=== PATIENT | female | born 1970 | race Hispanic/Latino ===

== ENCOUNTER 2018-05-25 06:59 | Outpatient (CLI) | payer BC ==
--- NOTE | 2018-05-25 09:01 | ULT ---
ULTRASOUND ABDOMEN: HISTORY: Abdominal pain. FINDINGS: The liver demonstrates homogeneous echotexture without focal mass or intrahepatic ductal dilatation. The spleen measures 9.3 cm in length without mass. There are nonshadowing echogenic foci arising fr om the gallbladder without mobility, consistent with polyps. The largest of these measures 9 mm. No shadowing gallstones, gallbladder wall thickening, or pericholecystic fluid is seen. The common artemio t measures 6 mm in diameter. The pancreas, abdominal aorta, and IVC are not well visualized. No hyd ronephrosis is seen on either side. There is are 3 cm cyst arising from the right kidney. No free f luid is seen in the abdomen. IMPRESSION: 1. Gallbladder polyps (the largest measuring 9 mm) Surgical consultation is recommended. 2. Right renal cyst. POS: [facility]
== END 2018-05-25 07:00 | disposition home or self-care (01) ==
LOC: BICULT 06:59
PROVIDERS: ATTEND Nurse Practitioner Family
DX: R10.13 Epigastric pain (principal); N30.00 Acute cystitis without hematuria; K59.00 Constipation, unspecified; K21.9 Gastro-esophageal reflux disease without esophagitis; K82.4 Cholesterolosis of gallbladder; N28.1 Cyst of kidney, acquired
CPT/HCPCS: 76700

== ENCOUNTER 2018-06-17 10:36 | Outpatient (CLI) | payer BC ==
[2018-06-17 15:01] LABS: #Lymphocytes 2.2 thou/uL (1.20-3.40); #Monocytes 0.5 thou/uL (0.11-0.59); #Neutrophils 3.7 thou/uL (1.40-6.50); %Basophils 0.2 % (0.0-1.0); %Eosinophils 0.6 % (0.0-10.0); %Monocytes 7.3 % (0.0-10.0); %Neutrophils 57.8 % (42.0-75.0); Hemoglobin 13.9 g/dL (12.0-16.0); Mean Corpuscular Hemoglobin 30.7 pg (27.0-31.0); Mean Corpuscular Volume 87.6 fL (78.0-98.0); Mean Platelet Volume 7.4 fL (7.4-10.4); Platelet Count 334 thou/uL (130-400); RBC Distribution Width 11.7 % (11.5-14.5); Red Blood Cell (RBC) Count 4.52 mill/uL (4.20-5.40); White Blood Cell (WBC) Count 6.5 thou/uL (4.8-10.8)
[2018-06-17 15:32] LABS: BHCG - Serum Negative (NEGATIVE); Pregs Control Background? CLEAR/WHITE (CLR/WHITE); Pregs Control Bar Appear? YES (CONTROL BAR)
[2018-06-17 15:40] LABS: ALT (SGPT) 55 U/L (8-55); AST (SGOT) 30 U/L (5-34); Albumin 4.3 g/dL (3.5-5.0); Alkaline Phosphatase 88 U/L (40-150); Anion Gap 11 mmol/L (10-20); BUN (Urea Nitrogen) 15 mg/dL (7.0-18.7); Bilirubin, Total 0.4 mg/dL (0.2-1.2); Calc. Creatinine Clearance 0 mL/min (70-130); Calcium 9.4 mg/dL (7.8-10.44); Carbon Dioxide 29 mmol/L (22-29); Chloride 107 mmol/L (98-107); Estimated GFR-MDRD 82; Globulin 3.1 g/dL (2.4-3.5); Glucose 102 mg/dL (70-105); Protein, Total 7.4 g/dL (6.0-8.3); Sodium 143 mmol/L (136-145)
== END 2018-06-17 10:37 | disposition home or self-care (01) ==
LOC: EEVIPCON 10:36 → LABBT 10:36
PROVIDERS: ATTEND Specialist
DX: Z01.812 Encounter for preprocedural laboratory examination (principal); K82.4 Cholesterolosis of gallbladder
CPT/HCPCS: 80053; 84703; 85025

== ENCOUNTER 2018-06-23 09:27 | Day surgery (SDC) | payer BC ==
[2018-06-17 14:55] VITALS: BMI 30.1
[2018-06-23] MEDS ORDERED: Ketorolac Tromethamine 30 MG/ML VIAL ONE (10:04)
[2018-06-23] MEDS ORDERED: Midazolam HCl 2 mg/2 ml Vial ONE ×2 (10:30→10:47)
[2018-06-23] MEDS ORDERED: Bupivacaine/Epinephrine 0.25% 30 ML VIAL ONE (10:34)
[2018-06-23] MEDS ORDERED: Fentanyl 100 MCG/2 ML VIAL ONE (10:47)
[2018-06-23] MEDS ORDERED: Lidocaine 2% Jelly 5 ML TUBE ONE (10:47)
[2018-06-23] MEDS ORDERED: SUGAMMADEX SODIUM 200 MG/2 ML VIAL ONE (11:49)
[2018-06-23] MEDS ORDERED: Ondansetron PF 4 MG/2 ML Vial ONE (14:12)
[2018-06-23] MEDS ORDERED: Rocuronium Bromide 10 MG/ML (10ML VIAL) ONE (14:12)
[2018-06-23] MEDS ORDERED: Lidocaine 1% PF 5 ML VIAL ONE (14:12)
[2018-06-23] MEDS ORDERED: Glycopyrrolate 0.2 MG/ML 5 ML SYRINGE ONE (14:12)
[2018-06-23] MEDS ORDERED: Dexamethasone 20 MG/5 ML VIAL ONE (14:12)
[2018-06-23] MEDS ORDERED: PROPOFOL 200 MG/20 ML VIAL ONE (14:12)
--- NOTE | 2018-06-23 18:39 | OP ---
DATE OF PROCEDURE: 06/23/2018 PREOPERATIVE DIAGNOSES: Right upper quadrant abdominal pain and gallbladder polyps. POSTOPERATIVE DIAGNOSES: Right upper quadrant abdominal pain and gallbladder polyps with gallstones. PROCEDURE PERFORMED: Laparoscopic cholecystectomy. ANESTHESIA: General endotracheal. INDICATIONS: The patient is a 47-year-old female. She presents with symptoms referable to gallbladder. Ultrasound of gallbladder revealed no definite gallstones, but evidence of fairly significant gallbladder polyps. For this reason, I recommended laparoscopic cholecystectomy. PROCEDURE IN DETAIL: Informed consent was obtained. The patient was taken to the operating room where general endotracheal anesthesia was obtained with the patient in the supine position. The abdomen was prepped with Betadine and draped in the usual sterile fashion. 0.25% Marcaine with epinephrine was infiltrated below the umbilicus and a 10 mm infraumbilical incision was created. A Veress needle was passed through this incision into the peritoneal cavity. A pneumoperitoneum was established using carbon dioxide up to a pressure of 15 mmHg. Local anesthetic was infiltrated and 3 additional 5 mm right upper quadrant incisions were created. Through the mid incision, a 5 mm port was passed into the peritoneal cavity. The camera was passed through this port and under direct vision, an 11 port was passed through the infraumbilical incision. The camera was replaced through this port, and under direct vision, 2 additional 5 mm ports were passed through the incisions already created. The gallbladder was grasped and retracted in a cephalad direction. Minimal adhesions were bluntly stripped away from the apex of the gallbladder, and the apex was retracted laterally and inferiorly. Careful dissection was carried out to the apex of the gallbladder to identify the cystic duct and cystic artery. These were each carefully dissected circumferentially. The duct was of normal caliber. Both the duct and the artery were divided between clips, leaving 2 on the side to remain within the abdomen. The gallbladder was then dissected out of the gallbladder fossa using electrocautery and removed through the infraumbilical port site. The fascia was closed with 0 Vicryl suture and a GraNee needle. The right upper quadrant was inspected and irrigated. All irrigant was aspirated. All ports and instruments were removed under direct vision. Pneumoperitoneum was carefully evacuated. Additional local anesthetic was infiltrated into each port site. The skin edges were approximated with 4-0 Monocryl subcuticular sutures, and Dermabond was placed externally. There were no complications. The patient tolerated the procedure well and was taken to the recovery room in stable condition. FINDINGS: The patient's gallbladder was without acute inflammation. There were some adhesions to this that were minimal and filmy. Surgery was performed without difficulty or blood loss. This duct was small and noninflamed. Cholangiogram was not obtained. During removal of the gallbladder, it was opened, and there were noted to be gallstones within the gallbladder, but no definite gallbladder polyps. The patient tolerated the procedure well. Job ID: [id number]
== END 2018-06-23 14:17 | disposition home or self-care (01) ==
LOC: SDC 09:27
PROVIDERS: ATTEND Specialist
PROC: 0FT44ZZ Resection of Gallbladder, Percutaneous Endoscopic Approach (ICD-10-PCS; principal; 2018-06-23)
DX: K80.10 Calculus of gallbladder with chronic cholecystitis without obstruction (principal); Z79.899 Other long term (current) drug therapy; K21.9 Gastro-esophageal reflux disease without esophagitis; Z79.1 Long term (current) use of non-steroidal anti-inflammatories (NSAID)
CPT/HCPCS: 88304; J0131; J1100; J1885; J2001; J2250; J2405; J2704; J3010

== ENCOUNTER 2019-07-19 11:10 | Outpatient (CLI) | payer BC ==
--- NOTE | 2019-07-19 11:27 | RAD ---
Exam:2 views left hip HISTORY: Pain COMPARISON: None FINDINGS: Onto the femoral head is maintained. Hip joint spaces preserved. No fracture. Visualized trice ny pelvis and sacrum are intact. IMPRESSION: No fracture.
== END 2019-07-19 11:11 | disposition home or self-care (01) ==
LOC: RAD-FRANK 11:10
PROVIDERS: ATTEND Nurse Practitioner Family
DX: M25.552 Pain in left hip (principal)